=== PATIENT | male | born 1945 | race Asian ===

== ENCOUNTER 2021-05-03 11:49 | Inpatient (IN) | payer BC, MEDICARE ==
[~2021-05-03] VITALS: Ht 160 cm; Wt 59.4 kg
[2021-05-03] MEDS ORDERED: TAMS-3 PO (12:19)
[2021-05-03] MEDS ORDERED: NEBI10TA2 PO (12:19)
[2021-05-03] MEDS ORDERED: ATOR10TA PO (12:19)
[2021-05-03] MEDS ORDERED: AZIL40TA PO (12:19)
[2021-05-03] MEDS ORDERED: ASPI81TA31 PO (12:19)
--- NOTE | 2021-05-03 12:23 | NUR ---
PT IS IN ROOM #2A. DR TSANG EVALUATED THE PT.
[2021-05-03 12:25] LABS: HEMATOCRIT 28.5 % (36.7-47.1); MEAN CORPUSCULAR HEMOGLOBIN 24.5 uug (23.8-33.4); PLATELET COUNT (AUTO) 164 K/uL (152-348)
--- NOTE | 2021-05-03 12:27 | NUR ---
PT'S DAUGHTER, VEGA STANFORD, , CALLED WITH THE FOLLOWING INFO: PT'S PMD IS DR. INDIA SHEARER AT [facility] [phone] PT'S METAL NUMERICAL CONTROL PROGRAMMER AT [facility] IS EDX MOORE, [phone] PT'S NEUROLOGIST IS DR. ADAM GÓMEZ AT [facility] [phone]
[2021-05-03 12:37] LABS: ALANINE AMINOTRANSFERASE 13 U/L (16-63); ALKALINE PHOSPHATASE 72 U/L (50-136); ASPARTATE AMINOTRANSFERASE 24 U/L (15-37); BILIRUBIN,DIRECT 0.2 mg/dL (0.0-0.2); BILIRUBIN,TOTAL 0.5 mg/dL (0.2-1.0); CARBON DIOXIDE 28 mmol/L (21-32); CHLORIDE 104 mmol/L (98-107); CREATININE 6.7 mg/dL (0.6-1.3); GLUCOSE 136 mg/dL (74-106); POTASSIUM 5.1 mmol/L (3.5-5.1); TOTAL PROTEIN, SERUM 7.4 g/dL (6.4-8.2); UREA NITROGEN, BLOOD 48 mg/dL (7-18)
[2021-05-03 12:40] LABS: MAGNESIUM 2.3 mg/dL (1.8-2.4); PHOSPHOROUS 4.1 mg/dL (2.5-4.9)
[2021-05-03] MEDS ORDERED: SEVE800T8 PO (13:55)
[2021-05-03] MEDS ORDERED: NIFE-34 PO (13:55)
[2021-05-03] MEDS ORDERED: ETAN50SY SUBCUT (13:55)
[2021-05-03] MEDS ORDERED: CYAN100T44 PO (13:55)
[2021-05-03] MEDS ORDERED: ISON300T19 PO (13:55)
[2021-05-03] MEDS ORDERED: PYRI25TA4 PO (13:55)
--- NOTE | 2021-05-03 14:00 | NUR ---
Pt ate lunch and is now watching TV. NAD noted at this time. Pt denies any pain or discomfort.
--- NOTE | 2021-05-03 14:19 | NUR ---
[facility] paged for admission per request, to call back. Called tele floor for tele bed assignment.
--- NOTE | 2021-05-03 14:22 | NUR ---
Per tele floor there are no beds available at this time.
--- NOTE | 2021-05-03 14:30 | NUR ---
spoke with via telephone and pt has been accepted for tele admission.
--- NOTE | 2021-05-03 15:45 | NUR ---
Pt found standing at bedside in room 2A, pt pulled his saline lock out (cath intact). Pt placed back in [facility] room 2A, placed back on cont awake overnight monitor, pulse ox and BP.
--- NOTE | 2021-05-03 18:00 | NUR ---
Pt eating dinner, NAD noted. Pending admission to tele.
--- NOTE | 2021-05-03 18:23 | NUR ---
Room 309 assigned on tele floor assigned for pt. Assigned nurse to call back for report.
--- NOTE | 2021-05-03 18:40 | NUR ---
SBAR report given to DEX Campoverde on tele floor via telephone.
--- NOTE | 2021-05-03 18:57 | NUR ---
Pt to be trans to room 309 at 1930.
--- NOTE | 2021-05-03 19:00 | NUR ---
Received patient on bed, confused, trying to get out of bed. O2 saturation at 88 %, O2 administered via nasal cannula. With shunt at [facility] as access fo dialysis. Routine admission care done. Fall precautions provided. Use of call light instructed.
[2021-05-03] MEDS ORDERED: ZOLPIDEM 5 MG TABLET PO PRN (20:15)
[2021-05-03] MEDS ORDERED: MAGNESIUM HYDROXIDE 30 ML LIQUID UDC PO PRN (20:15)
[2021-05-03] MEDS ORDERED: ACETAMINOPHEN 325 MG TABLET PO PRN (20:15)
[2021-05-03] MEDS ORDERED: REMEDY ESSENTIAL ZINC PASTE 113 GM TP PRN (20:15)
[2021-05-03] MEDS ORDERED: ONDANSETRON 4 MG/2 ML VIAL IV PRN (20:15)
[2021-05-03] MEDS ORDERED: ETANERCEPT SUBCUT SCH (20:30)
--- NOTE | 2021-05-03 20:50 | NUR ---
blood opressure at this time , no headache noted, dr. shanks notified and monitored pt closely.
[2021-05-03] MEDS ORDERED: ATORVASTATIN 10 MG TABLET PO SCH (21:00)
--- NOTE | 2021-05-03 21:00 | NUR ---
PHONE CALL MADE TO SPEAK WITH DAUGHTER,VEGA, SHE PROVIDED IMPORTANT INFORMATION REGARDING PT'S CONDITION AND MEDS. RN UNDERSIGNED REQUESTED FAMILY TO BRING BP MEDS FROM HOME,DEANDRE ACCORDING TO DTR, PT GETS IT ONCE A WEEK Q SUNDAY, SHANELLE AND KATIE WILL BE BROUGHT BYCAREGIVER IN AM.
[2021-05-03] MEDS ORDERED: CLONIDINE HCL 0.1 MG TABLET PO ONE (22:15)
--- NOTE | 2021-05-03 22:40 | NUR ---
MANUAL BP TAKEN 189/88 , CLONIDINE 0.1 MG PO GIVEN AD ORDERED. RESTING IN BED, HS CARE DONE.
--- NOTE | 2021-05-03 22:50 | NUR ---
patient noted to have inability to sleep, Ambien given as ordered. Patient able to sleep after an hour of administration.
--- NOTE | 2021-05-04 06:04 | NUR ---
Patient on bed awake, no shortness of breath noted. Assisted went to the bathroom with minimal to moderate assist needed.
--- NOTE | 2021-05-04 06:20 | NUR ---
Patient had urine output, voiding freely at the toilet with assistance. Patient had high blood pressure reading 194/98, Nifidipine 60mg PO given
[2021-05-04 06:44] LABS: HEMATOCRIT 29.4 % (36.7-47.1); MEAN CORPUSCULAR HEMOGLOBIN 24.4 uug (23.8-33.4); MEAN CORPUSCULAR VOLUME 76.9 fL (73.0-96.2); PLATELET COUNT (AUTO) 138 K/uL (152-348)
[2021-05-04 06:45] LABS: CARBON DIOXIDE 25 mmol/L (21-32); CHLORIDE 105 mmol/L (98-107); CHOLESTEROL 103 mg/dL (<200); CREATININE 6.9 mg/dL (0.6-1.3); GLUCOSE 103 mg/dL (74-106); HDL CHOLESTEROL 57 mg/dL (40-60); MAGNESIUM 2.4 mg/dL (1.8-2.4); PHOSPHOROUS 3.4 mg/dL (2.5-4.9); POTASSIUM 4.5 mmol/L (3.5-5.1); TRIGLYCERIDES 49 MG/DL (30-150); UREA NITROGEN, BLOOD 55 mg/dL (7-18)
--- NOTE | 2021-05-04 07:00 | NUR ---
Endorsed to Am nurse in fair condition, patient belongings inventoried, 900 dollars and black wallet deposited to the safe.
[2021-05-04] MEDS ORDERED: Medication Not On Formulary EA (Sevelamer Carbonate (Renvela) 1 TAB) PO SCH (08:00)
--- NOTE | 2021-05-04 08:00 | NUR ---
RESTING COMFORTALY IN BED WITH EYES CLOSED NO SIGNS OF DISTRESS EXCEPT FOR CONFUSION WITH TIME AND PLACE. CLOSELY MONITORED
[2021-05-04] MEDS: SEVELAMER CARBONATE 800 MG TABLET PO SCH ×3 (08:44→17:13)
[2021-05-04] MEDS ORDERED: PYRIDOXINE HCL 100 MG TABLET PO SCH (09:00)
[2021-05-04] MEDS ORDERED: Medication Not On Formulary EA (Azilsartan Medoxomil (Edarbi) 1 TAB) PO SCH (09:00)
[2021-05-04] MEDS ORDERED: ISONIAZID 100 MG TABLET PO SCH (09:00)
[2021-05-04] MEDS ORDERED: NEBIVOLOL 10 MG PO SCH (09:00)
[2021-05-04] MEDS ORDERED: [UNRECOGNIZED DRUG - OTHER] PO SCH (09:00)
[2021-05-04] MEDS ORDERED: ASPIRIN 81 MG TAB.CHEW PO SCH (09:00)
[2021-05-04] MEDS ORDERED: [UNRECOGNIZED DRUG - OTHER] PO SCH (09:00)
[2021-05-04] MEDS ORDERED: ISONIAZID 300 MG TABLET PO SCH (09:00)
[2021-05-04] MEDS ORDERED: NIFEdipine XL 60 MG TABSR PO SCH (09:00)
[2021-05-04] MEDS ORDERED: TAMSULOSIN HCL 0.4 MG CAP.SR.24H PO SCH (09:00)
[2021-05-04] MEDS ORDERED: AZILSARTAN 40 MG PO SCH (09:00)
[2021-05-04] MEDS ORDERED: PYRIDOXINE HCL 50 MG PO SCH (09:00)
[2021-05-04] MEDS ORDERED: CYANOCOBALAMIN 100 MCG TABLET PO SCH (09:00)
--- NOTE | 2021-05-04 10:00 | NUR ---
SEEN BY DR FAM AND DR CAGE BOTH AGREED FOR DISCHARGE POST HD.
[2021-05-04 12:10] VITALS: BP 136/69
--- NOTE | 2021-05-04 12:38 | NUR ---
hemodialysis started at bedside
--- NOTE | 2021-05-04 14:55 | NUR ---
HEMODIALYSIS COMPLETED WITHOUT ANY REACTION OR COMPLICATION. AWAITING DAUGHTER TO NURSE WOUND PATIENT FOR DISCHARGE HOME
[2021-05-04 16:42] VITALS: BP 128/59
--- NOTE | 2021-05-04 18:48 | NUR ---
discharged home stable accompanied by family with DC meds and follow-up instruction with pcp
[2021-05-05 06:09] LABS: HEPATITIS B SURFACE AG Negative (Negative)
[2021-05-06] MEDS ORDERED: ETANERCEPT 50 MG SQ SCH (09:00)
[2021-05-06] MEDS ORDERED: [UNRECOGNIZED DRUG - OTHER] SQ SCH (09:00)
== END 2021-05-04 18:45 | disposition home or self-care (01) | DRG 304 ==
LOC: ER 11:49 → TELE3 18:47 → MEDSURG3 20:30
PROVIDERS: ADMIT Family Medicine; ATTEND Family Medicine
PROC: 5A1D70Z Performance of Urinary Filtration, Intermittent, Less than 6 Hours Per Day (ICD-10-PCS; principal; 2021-05-04)
DX: I16.0 Hypertensive urgency (principal); N18.6 End stage renal disease; I12.0 Hypertensive chronic kidney disease with stage 5 chronic kidney disease or end stage renal disease; D63.8 Anemia in other chronic diseases classified elsewhere; E78.5 Hyperlipidemia, unspecified; Z99.2 Dependence on renal dialysis; R53.1 Weakness; R73.9 Hyperglycemia, unspecified; W19.XXXA Unspecified fall, initial encounter; Y93.9 Activity, unspecified; Y92.89 Other specified places as the place of occurrence of the external cause; Z91.15 Patient's noncompliance with renal dialysis
CPT/HCPCS: 36415; 70450; 71045; 83735; 84100; 84484; 85025; 86706; 87340; 90937; 93005; A4663; A6209; G0378; J7030